=== PATIENT | male | born 1940 | race Caucasian/White ===

== ENCOUNTER → 2018-08-07 | Outpatient (CLI) | payer MEDICARE, OTHER ==
[~2018-08-07] MED LIST: ALLO300 PO; ATEN25; Aspirin EC325 MG PO; Benicar40 MG PO; CARV6.25 PO; CYAN1000 PO; DOCU100 PO; DOXA2 PO; DOXA4; DOXA4 PO; DOXE25; EPRO400; FAMO20 PO; FISH1000 PO; GEMF600; GEMF600 PO; HYDMOR2 PO; IRON PO; Iron Supplemen325 MG PO; METF500; METF500 PO; METPRE4DP PO; Norco 5-325 Ta1 EACH PO; OLME20 PO; PRED10 PO; SIMV10 PO; SPIR50 PO; [UNRECOGNIZED DRUG - OTHER] PO
== END | disposition home or self-care (01) ==
LOC: LAB SHORT 12:22 → LAB EV 12:22
DX: N39.0 Urinary tract infection, site not specified (principal)
CPT/HCPCS: 87077; 87086; 87186

== ENCOUNTER 2019-01-06 11:54 | Inpatient (IN) | payer MEDICARE, OTHER ==
[~2019-01-06] VITALS: Ht 170.2 cm; Wt 78.3 kg
[2019-01-06 12:28] LABS: BASOPHILS ABSOLUTE AUTO 0.07 K/mm3 (0.00-0.23); BASOPHILS PERCENT AUTO 1 % (0-2); EOSINOPHILS ABSOLUTE AUTO 0.04 K/mm3 (0.00-0.68); EOSINOPHILS PERCENT AUTO 0 % (0-6); Hematocrit 39.7 % (37.0-53.0); Hemoglobin 12.9 g/dL (13.5-17.5); IMMATURE GRAN ABSOLUTE AUTO 0.14 K/mm3 (0.00-0.10); IMMATURE GRAN PERCENT AUTO 1 % (0-1); LYMPHOCYTES ABSOLUTE AUTO 0.58 K/mm3 (0.84-5.20); LYMPHOCYTES PERCENT AUTO 4 % (21-46); MONOCYTES ABSOLUTE AUTO 0.91 K/mm3 (0.16-1.47); MONOCYTES PERCENT AUTO 6 % (4-13); Mean Corpuscular HGB 30.4 pg (26.0-34.0); Mean Corpuscular HGB Conc 32.5 g/dL (31.5-36.5); Mean Corpuscular Volume 93 fL (80-100); Mean Platelet Volume 12.3 fL (9.1-12.4); NEUTROPHILS ABSOLUTE AUTO 13.02 K/mm3 (1.96-9.15); NEUTROPHILS PERCENT AUTO 88 % (41-73); Platelet Count 166 K/mm3 (150-400); RDW Coefficient Variation 13.1 % (11.7-14.2); RDW Standard Deviation 44.6 fL (35.1-46.3); Red Blood Cell Count 4.25 M/mm3 (4.30-5.90); White Blood Cell Count 14.76 K/mm3 (4.00-11.30)
[2019-01-06 12:46] LABS: Albumin, Blood 2.9 g/dL (3.4-5.0); Albumin/Globulin Ratio 0.7 (0.8-1.8); Bilirubin, Total 0.3 mg/dL (0.1-1.0); Bun/Creatinine Ratio 30.8 (12.0-20.0); Calcium, Blood 8.5 mg/dL (8.5-10.1); Creatinine, Blood 1.43 mg/dL (0.60-1.20); Globulin, Blood 4.2 g/dL (2.2-4.0); Potassium, Blood 3.8 mmol/L (3.5-5.5); Total Protein, Blood 7.1 g/dL (6.4-8.2)
[2019-01-06] MEDS ORDERED: ROSU5 PO (13:14)
--- NOTE | 2019-01-06 17:46 | NUR ---
SHIFT SUMMARY PATIENT ADMITTED TO THE UNIT IN THE 1500 HOUR. HIS RIGHT UPPER EXTREMITY HAS A PRETTY SIGNIFICANT CELLULITIS WITH ONE OPEN BLISTER AND TWO CLOSED BLISTERS. HE STATES THAT IT HAPPENED OVER A 2 DAY PERIOD, NO TRAUMA TO THE AREA, NO BITE, NO BUMPS NOTED. PATIENT IS A&O X4. INDEPENDENT TO SBA AND CALLS APPROPRIATELY. HE IS RUNNING ONE BAG OF LACTATED RINGERS AND HIS ORTHO CONSULT HAS BEEN CALLED TO DR. VU. WILL ASSESS FOR ANY CHANGES, AT THIS TIME PATIENT IS PLEASANT AND DENIES HUNGER.
[2019-01-07 05:00] LABS: BASOPHILS ABSOLUTE AUTO 0.04 K/mm3 (0.00-0.23); BASOPHILS PERCENT AUTO 0 % (0-2); EOSINOPHILS ABSOLUTE AUTO 0.12 K/mm3 (0.00-0.68); EOSINOPHILS PERCENT AUTO 1 % (0-6); Hematocrit 35.9 % (37.0-53.0); Hemoglobin 11.6 g/dL (13.5-17.5); IMMATURE GRAN ABSOLUTE AUTO 0.09 K/mm3 (0.00-0.10); IMMATURE GRAN PERCENT AUTO 1 % (0-1); LYMPHOCYTES ABSOLUTE AUTO 0.88 K/mm3 (0.84-5.20); LYMPHOCYTES PERCENT AUTO 8 % (21-46); MONOCYTES ABSOLUTE AUTO 0.74 K/mm3 (0.16-1.47); MONOCYTES PERCENT AUTO 7 % (4-13); Mean Corpuscular HGB 30.9 pg (26.0-34.0); Mean Corpuscular HGB Conc 32.3 g/dL (31.5-36.5); Mean Platelet Volume 12.1 fL (9.1-12.4); NEUTROPHILS ABSOLUTE AUTO 8.68 K/mm3 (1.96-9.15); NEUTROPHILS PERCENT AUTO 82 % (41-73); Platelet Count 161 K/mm3 (150-400); RDW Coefficient Variation 13.1 % (11.7-14.2); RDW Standard Deviation 45.9 fL (35.1-46.3); Red Blood Cell Count 3.76 M/mm3 (4.30-5.90); White Blood Cell Count 10.55 K/mm3 (4.00-11.30)
[2019-01-07 05:01] LABS: Mean Corpuscular Volume 96 fL (80-100)
[2019-01-07 05:44] LABS: Anion Gap 11 mmol/L (6-16); Blood Urea Nitrogen 35 mg/dL (8-24); Bun/Creatinine Ratio 29.9 (12.0-20.0); CO2, Blood 22 mmol/L (21-32); Calcium, Blood 8.5 mg/dL (8.5-10.1); Chloride, Blood 104 mmol/L (98-108); Creatinine, Blood 1.17 mg/dL (0.60-1.20); Glomerular Filtration Rate >60 (60-); Glucose, Blood 81 mg/dL (70-99); Potassium, Blood 3.3 mmol/L (3.5-5.5); Sodium, Blood 137 mmol/L (136-145)
--- NOTE | 2019-01-07 06:20 | NUR ---
01/07/19 0600 SECOND BLOOD CULTURE THE SAME FIRST AND MD/PHARMACY AWARE. SLEPT WELL AND VITALS STABLE.
--- NOTE | 2019-01-07 08:48 | NUR ---
PATIENT IS IRRITABLE THIS MORNING. HE STATES THAT EVERY FIVE MINUTES THERE IS SOMEONE IN HIS ROOM, I EXPLAINED TO HIM IN THE HOSPITAL WE CHECK ON OUR PATIENTS REGULARLY AND THERE ARE A LOT OF PEOPLE WORKING ON HIS CASE. HE SAID HE DOES NOT FEEL SICK AND THAT IT IS JUST HIS HAND, THAT IS WHY HE CAME IN. I EXPLAINED TO HIM ABOUT HIS MEDS. HE AGREED TO TAKE THE PROBIOTIC AND THE ANTIBIOTIC. HE REFUSED HIS POTASSIUM AND ALSO REFUSED THE LOSARTAN. HE STATES THAT HE DOES NOT TAKE THAT ANYMORE. I EXPLAIEND TO HIM ABOUT HIS POTASSIUM BEING LOW, HE DID NOT WANT TO TAKE THE POTASSIUM PILL.
[2019-01-07 13:30] LABS: Vancomycin, Trough 4.8 ug/mL (5.0-10.0)
--- NOTE | 2019-01-07 18:20 | NUR ---
SHIFT SUMMARY PATIENT WAS PLEASANT TODAY. WRIST IS WRAPPED AND CULTURES HAVE BEEN SENT OFF OF HIS WOUND. WILL CONTINUE TO MONITOR FOR CHANGES. UNTIL HE IS AWAKE HE CAN BE A LITTLE BIT CRANKY. HE DOES REQUEST TO GET SOME SLEEP TONIGHT, HE STATED THAT SOMEONE WAS ALWAYS IN HIS ROOM. UNKNOWN IF HE IS JUST MILDLY ANXIOUS AT THIS TIME. HAS TAKEN HIS MEDICATIONS AND WILL DOSUMENT ANY CHANGES.
--- NOTE | 2019-01-08 01:08 | NUR ---
01/07/192049 PT C/O ITCHING IN BOTH ARMS "SINCE ABOUT 3 PM". NO RASH SEEN. 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 RN PAGED DIRECTOR TELEVISION HOSPITALIST AND BENADRYL 25 MG GIVEN PO. PT REQUESTED TO SEE UNDER CARLA WRAP. RN UNWRAPPED ACR AND GAUZE DRESSING INTACT WITH SEROUS DRAINAGE. RN RE-WRAPPED CARLA AND PT WATCHING TV.
--- NOTE | 2019-01-08 05:11 | NUR ---
01/08/19 0500 SLEEPING WELL. VITALS STABLE. HAS BEEN MORE RESTLESS WITH "ITCHING" ISSUES TO HANDS/ARMS. DRESSING INTACT TO RT HAND AND ARM.
[2019-01-08 07:59] LABS: Vancomycin, Trough 12.6 ug/mL (5.0-10.0)
--- NOTE | 2019-01-08 16:58 | NUR ---
THIS PATIENT IS ALERT AND ORIENTED X2 AND COOPERATIVE WITH CARE. HE FORGETS HIS OWN LIMITATIONS AND NEEDS FREQUENT REMINDING. HE HAS A DRESSING ON HIS RIGHT WRIST COVERING THE CELLULITIS. A NEW IV WAS PLACED IN HIS LEFT UPPER ARM, A 20 GAUGE. HIS POTATTIUM WAS 3.[address] SMITH ORDERED 40 MEQ OF POTASSIUM CHLORIDE PO. THE PT CAN AMBULATE WITH A FWW, HE CAN BECOME UNSTEADY SO ASSISTANCE IS NEEDED. HE USES THE URINAL IN AT THE BEDSIDE OR CAN WALK TO THE BATHROOM. WILL CONTINUE TO MONITOR.
--- NOTE | 2019-01-09 06:07 | NUR ---
01/09/19 0545 PT SLEPT BETTER TONIGHT. WOKE UP ONCE AROUND MIDNIGHT AND STATES HE WAS UNSURE WHERE HE WAS. RN WAS THERE TO GIVE IV ANTIBIOTIC AND RE-ORIENTED HIM TO SURROUNDINGS. VITALS REMAIN STABLE. RT HAND/ARM DRESSING INTACT. NO C/O ITCHING THIS SHIFT.
[2019-01-09 09:45] LABS: BASOPHILS ABSOLUTE AUTO 0.04 K/mm3 (0.00-0.23); BASOPHILS PERCENT AUTO 1 % (0-2); EOSINOPHILS ABSOLUTE AUTO 0.07 K/mm3 (0.00-0.68); EOSINOPHILS PERCENT AUTO 1 % (0-6); Hematocrit 35.4 % (37.0-53.0); Hemoglobin 11.3 g/dL (13.5-17.5); IMMATURE GRAN PERCENT AUTO 1 % (0-1); LYMPHOCYTES ABSOLUTE AUTO 0.74 K/mm3 (0.84-5.20); LYMPHOCYTES PERCENT AUTO 10 % (21-46); MONOCYTES ABSOLUTE AUTO 0.86 K/mm3 (0.16-1.47); MONOCYTES PERCENT AUTO 11 % (4-13); Mean Corpuscular HGB 30.3 pg (26.0-34.0); Mean Corpuscular HGB Conc 31.9 g/dL (31.5-36.5); Mean Corpuscular Volume 95 fL (80-100); Mean Platelet Volume 11.2 fL (9.1-12.4); NEUTROPHILS ABSOLUTE AUTO 5.99 K/mm3 (1.96-9.15); NEUTROPHILS PERCENT AUTO 77 % (41-73); Platelet Count 244 K/mm3 (150-400); RDW Coefficient Variation 13.2 % (11.7-14.2); RDW Standard Deviation 46.2 fL (35.1-46.3); Red Blood Cell Count 3.73 M/mm3 (4.30-5.90)
[2019-01-09 09:57] LABS: Anion Gap 9 mmol/L (6-16); Blood Urea Nitrogen 16 mg/dL (8-24); CO2, Blood 27 mmol/L (21-32); Calcium, Blood 8.7 mg/dL (8.5-10.1); Chloride, Blood 105 mmol/L (98-108); Creatinine, Blood 0.89 mg/dL (0.60-1.20); Glomerular Filtration Rate >60 (60-); Glucose, Blood 110 mg/dL (70-99); Potassium, Blood 3.7 mmol/L (3.5-5.5); Sodium, Blood 141 mmol/L (136-145)
--- NOTE | 2019-01-09 17:39 | NUR ---
THIS PT IS ALERT AND ORIENTED WITH MILD CONFUSION. DR. GOLD CHECKED THE WOUND ON HIS RIGHT HAND AND ORDERED NEW DRESSING CHANGES OF SILVADENE, OIL EMULSION, GAUZE AND CARLA WRAP. THE WOUND ITSELF HAD A STRONG ODOR, IT BLED AND HAD YELLOW AND SEROSANGUINOUS DRAINAGE. THE WOUND IS PAINFUL TO THE TOUCH, WHICH WAS TREATED WIHT TYLENOL. HE HAS A 20 GAUGE IN HIS LEFT UPPER ARM, SALINE LOCKED. THE PT SLEPT IN BED MOST OF THE DAY. HIS APPETTITE HASNT BEEN THE BEST, HE TRIES TO REFUSE MEALS BUT IS ENCOURAGED TO TRY TO EAT SOMETHING. HE IS UP AT THE BEDSIDE WITH THE URINAL. NO ACUTE CHANGES AND WILL CONTINUE TO MONITOR.
--- NOTE | 2019-01-10 05:02 | NUR ---
SHIFT SUMMARY PT SLEPT WELL T/O NIGHT. AOX3, FORGETFUL @TIMES YET ANSWERS YES/NO QUESTIONS APPROPRIATELY & FOLLOWS DIRECTIONS. DENIES SOB OR N/V. VSS. REPORTS 7/10 PAIN IN R HAND THIS AM, WAS MEDICATED W/TYLENOL 1X PER ORDERS, REPORTS TYLENOL HELPS W/ THROBBING PAIN & PT REMOVED CARLA WRAP OFF R HAND & WOULD NOT LET ME REWRAP. DRESSING WAS CHANGED 01/09/19 PER DAY SHIFT RN, THIS AM DRESSING HAD SCANT AMOUNT SEROSANGUINEOUS DRAINAGE BUT WAS INTACT. PT REPORTED ITCHING THIS AM & WAS MEDICATED 1X W/BENYDRL PER ORDERS. PT INDEPENDENT IN ROOM & IS CONTINENT. CALL LIGHT IS IN REACH & I WCTM PT UNTIL DAY SHIFT RN ASSUMES CARE.
--- NOTE | 2019-01-10 16:23 | NUR ---
PT WITH FEVER 101.7 GIVEN TYLENOL 500MG PO, AWARE.
--- NOTE | 2019-01-10 18:50 | NUR ---
SHIFT SUMMARY REDRESSED WOUND TO RIGHT HAND PURULENT YELLOW EXUDATE NOTED ON GAUZE. PAIN, REDDNESS AND WARMTH TO SITE. DECREASED APPETITE BUT DRINKING ENSURES. FEVER THIS AFTERNOON. OOB TO BATHROOM STANDBY ASSIST. CONTINENT. SPOUSE AND DAUGHTER TO VISIT. C/O PAIN TO LEFT ARM RELIEVED BY ORDERED PAIN MEDICATIONS.
--- NOTE | 2019-01-11 05:26 | NUR ---
SHIFT SUMMARY PT A/O SLOW TO RESPOND. SBA TO BA USES URINAL AT BEDSIDE. C/O PAIN IN R HAND AND MEDICATED PER EMAR X1. HE WAS ABLE TO SLEEP ON AND OFF T/O NOC. CALL LIGHT IN REACH
[2019-01-11 08:28] LABS: BASOPHILS ABSOLUTE AUTO 0.03 K/mm3 (0.00-0.23); BASOPHILS PERCENT AUTO 0 % (0-2); EOSINOPHILS ABSOLUTE AUTO 0.08 K/mm3 (0.00-0.68); EOSINOPHILS PERCENT AUTO 1 % (0-6); Hemoglobin 11.2 g/dL (13.5-17.5); IMMATURE GRAN ABSOLUTE AUTO 0.09 K/mm3 (0.00-0.10); IMMATURE GRAN PERCENT AUTO 1 % (0-1); LYMPHOCYTES ABSOLUTE AUTO 0.76 K/mm3 (0.84-5.20); LYMPHOCYTES PERCENT AUTO 11 % (21-46); MONOCYTES ABSOLUTE AUTO 0.85 K/mm3 (0.16-1.47); MONOCYTES PERCENT AUTO 12 % (4-13); Mean Corpuscular HGB 30.4 pg (26.0-34.0); Mean Corpuscular Volume 95 fL (80-100); Mean Platelet Volume 11.4 fL (9.1-12.4); NEUTROPHILS ABSOLUTE AUTO 5.27 K/mm3 (1.96-9.15); NEUTROPHILS PERCENT AUTO 75 % (41-73); Platelet Count 284 K/mm3 (150-400); RDW Standard Deviation 45.3 fL (35.1-46.3); Red Blood Cell Count 3.69 M/mm3 (4.30-5.90); White Blood Cell Count 7.08 K/mm3 (4.00-11.30)
--- NOTE | 2019-01-11 09:04 | NUR ---
CHANGED PT'S BANADAGE ON R HAND. WOUND HAS LOOSE SKIN AND WET DISCHARGE. REBANDAGED AND WRAPPED. TREATED PAIN PER EMAR. PT TOLERATED CHANGE WELL.
--- NOTE | 2019-01-11 17:20 | NUR ---
PT AOX4 AND COOPERATIVE OF CARE. PT USING URINAL AT BEDSIDE. PT TREATED FOR R HAND PAIN PER EMAR. CALLS APPROPRIATELY. WILL CONTINUE TO MONITOR.
--- NOTE | 2019-01-12 05:16 | NUR ---
SHIFT SUMMARY C/O PAIN IN R HAND AND MEDICATED X2. HE WAS ABLE TO SLEEP T/O NIGHT USING URINAL AT BEDSIDE. CALL LIGHT IN REACH
--- NOTE | 2019-01-12 17:47 | NUR ---
PATIENT DECLINED DINNER TRAY WHEN I BROUGHT IT IN. I OFFERED OTHER ALTERNATIVED AND PATIENT DECLINED. TRAY WAS REMOVED AND RN NOTIFIED.
[2019-01-13 04:45] LABS: BASOPHILS ABSOLUTE AUTO 0.04 K/mm3 (0.00-0.23); BASOPHILS PERCENT AUTO 1 % (0-2); EOSINOPHILS ABSOLUTE AUTO 0.17 K/mm3 (0.00-0.68); EOSINOPHILS PERCENT AUTO 2 % (0-6); Hematocrit 34.6 % (37.0-53.0); Hemoglobin 10.9 g/dL (13.5-17.5); IMMATURE GRAN ABSOLUTE AUTO 0.05 K/mm3 (0.00-0.10); IMMATURE GRAN PERCENT AUTO 1 % (0-1); LYMPHOCYTES ABSOLUTE AUTO 0.84 K/mm3 (0.84-5.20); LYMPHOCYTES PERCENT AUTO 12 % (21-46); MONOCYTES ABSOLUTE AUTO 0.63 K/mm3 (0.16-1.47); MONOCYTES PERCENT AUTO 9 % (4-13); Mean Corpuscular HGB 30.4 pg (26.0-34.0); Mean Corpuscular HGB Conc 31.5 g/dL (31.5-36.5); Mean Corpuscular Volume 97 fL (80-100); Mean Platelet Volume 11.3 fL (9.1-12.4); NEUTROPHILS ABSOLUTE AUTO 5.33 K/mm3 (1.96-9.15); NEUTROPHILS PERCENT AUTO 76 % (41-73); Platelet Count 317 K/mm3 (150-400); RDW Coefficient Variation 13.1 % (11.7-14.2); RDW Standard Deviation 46.5 fL (35.1-46.3); Red Blood Cell Count 3.58 M/mm3 (4.30-5.90); White Blood Cell Count 7.06 K/mm3 (4.00-11.30)
[2019-01-13 05:01] LABS: Anion Gap 8 mmol/L (6-16); Blood Urea Nitrogen 18 mg/dL (8-24); Bun/Creatinine Ratio 21.6 (12.0-20.0); CO2, Blood 29 mmol/L (21-32); Calcium, Blood 8.7 mg/dL (8.5-10.1); Chloride, Blood 97 mmol/L (98-108); Creatinine, Blood 0.83 mg/dL (0.60-1.20); Glomerular Filtration Rate >60 (60-); Glucose, Blood 85 mg/dL (70-99); Potassium, Blood 3.4 mmol/L (3.5-5.5); Sodium, Blood 134 mmol/L (136-145)
--- NOTE | 2019-01-13 06:33 | NUR ---
SHIFT SUMMARY PT PLEASANT AND COOPERATIVE. STANDS AT BEDSIDE TO USE THE URINAL BUT NEEDS ASSISTANCE AT TIMES. DENIED PAIN THIS EVENING. DID COMPLAIN OF ITCHING ON ARMS AND LEGS. BENADRYL CREAM APPLIED PER ORDERS. DRESSING TO R HAND CELLULITIS CLEAN, DRY, AND INTACT. PT SLEPT WELL THROUGH MOST OF THE NIGHT. NO ACUTE CHANGES. VSS.
[2019-01-13] MEDS ORDERED: ACET500 PO (10:49)
[2019-01-13] MEDS ORDERED: DIPH50 PO (10:50)
[2019-01-13] MEDS ORDERED: AMOCLA500 PO (10:50)
[2019-01-13] MEDS ORDERED: [UNRECOGNIZED DRUG - OTHER] TOP (10:52)
[2019-01-13] MEDS ORDERED: ONDA4ODT MM (10:53)
[2019-01-13] MEDS ORDERED: Senna Plus Tab1 EACH PO (10:53)
[2019-01-13] MEDS ORDERED: Acidophilus La100 GM PO (10:53)
[2019-01-13] MEDS ORDERED: TRAM50 PO (10:54)
[2019-01-13] MEDS ORDERED: ASCO500 PO (10:54)
[2019-01-13] MEDS ORDERED: Silvadene20 GM TOP (10:54)
[2019-01-13] MEDS ORDERED: GAVILAX17 GM PO (10:54)
[2019-01-13] MEDS ORDERED: Ferrous Sulfat325 M2 PO (10:55)
[2019-01-13] MEDS ORDERED: CARV6.25 PO (10:55)
[2019-01-13] MEDS ORDERED: Micro-K10 MEQ PO (10:55)
--- NOTE | 2019-01-13 14:19 | NUR ---
SHIFT SUMMARY/DC PT HAS HAD NO ACUTE CHANGES THIS SHIFT, NO COMPLAINTS OF ANY KIND, REVIEWED DC INSTRUCTIONS W/PT, SPOUSE & DAUGHTER, ALL VERBALIZED UNDERSTANDING. DC INSTRUCTIONS STATED HOME W/HH & WOUND CLINIC FOLLOW UP. REDRESSED WOUND W/SPOUSE AND DAUGHTER, GAVE EXTRA SUPPLIES TO BE AVAILABLE IF NEEDED BEFORE FOLLOW UP. FACE SHEET FAXED TO WOUND CLINIC. PT TRANSPORTED VIA W/C TO DC IN PRIVATE VEHICLE @ 1400.
== END 2019-01-13 13:59 | disposition home health service (06) | DRG 872 ==
LOC: ER 11:54 → MEDS 13:52 → ENPENDDIS 01-13 10:47 → EDPENDDIS 01-13 10:47 → MEDS 01-13 13:59
PROVIDERS: Family Medicine; Internal Medicine; Physician Assistant; ADMIT Internal Medicine
DX: A41.9 Sepsis, unspecified organism (principal); L03.113 Cellulitis of right upper limb; N17.9 Acute kidney failure, unspecified; E78.5 Hyperlipidemia, unspecified; E87.6 Hypokalemia; N40.0 Benign prostatic hyperplasia without lower urinary tract symptoms; F06.8 Other specified mental disorders due to known physiological condition; E88.81 Metabolic syndrome and other insulin resistance; Z87.891 Personal history of nicotine dependence; B95.61 Methicillin susceptible Staphylococcus aureus infection as the cause of diseases classified elsewhere; I12.9 Hypertensive chronic kidney disease with stage 1 through stage 4 chronic kidney disease, or unspecified chronic kidney disease; E11.22 Type 2 diabetes mellitus with diabetic chronic kidney disease; N18.9 Chronic kidney disease, unspecified
CPT/HCPCS: 36415; 73130; 80048; 80053; 80202; 83605; 84132; 85025; 87040; 87070; 87075; 87147; 87205; 93306; 96365; 96367; 97110; 97116; 97162; 97530; 99285-25; J0690; J1650; J2405; J3370; J7050; J7120; Q0163

== ENCOUNTER 2023-04-07 04:08 | Emergency (ER) | payer MEDICARE, OTHER ==
[~2023-04-07] VITALS: Ht 170.2 cm; Wt 81.7 kg
[~2023-04-07 04:08] MED LIST changes: +ACET500 PO; +AMOCLA500 PO; +ASCO500 PO; +Acidophilus La100 GM PO; +DIPH50 PO; +Ferrous Sulfat325 M2 PO; +GAVILAX17 GM PO; +Micro-K10 MEQ PO; +ONDA4ODT MM; +ROSU5 PO; +Senna Plus Tab1 EACH PO; +Silvadene20 GM TOP; +TRAM50 PO; +[UNRECOGNIZED DRUG - OTHER] TOP
[2023-04-07 04:57] LABS: BASOPHILS ABSOLUTE AUTO 0.11 K/mm3 (0.00-0.23); BASOPHILS PERCENT AUTO 1 % (0-2); EOSINOPHILS ABSOLUTE AUTO 0.58 K/mm3 (0.00-0.68); EOSINOPHILS PERCENT AUTO 7 % (0-6); Hematocrit 47.8 % (37.0-53.0); Hemoglobin 15.9 g/dL (13.5-17.5); IMMATURE GRAN ABSOLUTE AUTO 0.05 K/mm3 (0.00-0.10); IMMATURE GRAN PERCENT AUTO 1 % (0-1); LYMPHOCYTES ABSOLUTE AUTO 1.28 K/mm3 (0.84-5.20); LYMPHOCYTES PERCENT AUTO 15 % (21-46); MONOCYTES ABSOLUTE AUTO 1.07 K/mm3 (0.16-1.47); MONOCYTES PERCENT AUTO 12 % (4-13); Mean Corpuscular HGB 30.6 pg (26.0-34.0); Mean Corpuscular HGB Conc 33.3 g/dL (31.5-36.5); Mean Corpuscular Volume 92 fL (80-100); Mean Platelet Volume 11.8 fL (9.1-12.4); NEUTROPHILS PERCENT AUTO 65 % (41-73); Platelet Count 191 K/mm3 (150-400); RDW Coefficient Variation 14.6 % (11.7-14.2); RDW Standard Deviation 49.5 fL (35.1-46.3); White Blood Cell Count 8.79 K/mm3 (4.00-11.30)
[2023-04-07 05:17] LABS: Albumin/Globulin Ratio 0.8 (0.8-1.8); Bilirubin, Total 1.1 mg/dL (0.1-1.0); Bun/Creatinine Ratio 12.8 (12.0-20.0); C-REACTIVE PROTEIN, EXT RANGE 8.18 mg/dL (0.000-0.300); Calcium, Blood 8.6 mg/dL (8.5-10.1); Creatinine, Blood 1.09 mg/dL (0.60-1.20)
[2023-04-07 05:45] LABS: Body Fluid Crystals POS (NEGATIVE)
[2023-04-07 07:22] LABS: Appearance, Synovial Fluid Cloudy (Clear); Color, Synovial Fluid Yellow (None-P Yel); WBC Count, Synovial Fluid 38225 /mm3 (0-180)
[2023-04-07 07:46] LABS: RBC Count, Synovial Fluid 625 /mm3 (0-0)
[2023-04-07] MEDS ORDERED: NAPR500EC PO (07:56)
[2023-04-07 08:23] LABS: Monocytes/Macrophages, Synovia 11 % (0-65); Neutrophils, Synovial Fluid 89 % (0-24)
[2023-04-07 08:27] VITALS: BP 163/116
== END 2023-04-07 08:24 | disposition home or self-care (01) ==
LOC: ER 04:08
PROVIDERS: Emergency Medicine
DX: M10.9 Gout, unspecified (principal); I10 Essential (primary) hypertension; E11.9 Type 2 diabetes mellitus without complications
CPT/HCPCS: 73560-LT; 80053; 85025; 85651; 86140; 89051; 89060; J1885; J2405; J3010

== ENCOUNTER 2023-05-31 11:06 | Emergency (ER) | payer MEDICARE, OTHER ==
[~2023-05-31] VITALS: Ht 175.3 cm; Wt 72.6 kg
[~2023-05-31 11:06] MED LIST changes: +NAPR500EC PO
[2023-05-31 11:11] VITALS: BP 160/64
== END 2023-05-31 13:50 | disposition home or self-care (01) ==
LOC: ER 11:06
DX: M11.841 Other specified crystal arthropathies, right hand (principal); M10.9 Gout, unspecified; I10 Essential (primary) hypertension; E11.9 Type 2 diabetes mellitus without complications; Z87.891 Personal history of nicotine dependence
CPT/HCPCS: 73110; 93971; 96374; 99284-25; J1885

== ENCOUNTER 2023-07-30 23:00 | Emergency (ER) | payer MEDICARE, OTHER ==
[~2023-07-30] VITALS: Ht 175.3 cm; Wt 72.6 kg
[2023-07-30 23:05] VITALS: BP 174/99
[2023-07-30 23:38] LABS: BASOPHILS ABSOLUTE AUTO 0.07 K/mm3 (0.00-0.23); BASOPHILS PERCENT AUTO 1 % (0-2); EOSINOPHILS ABSOLUTE AUTO 0.79 K/mm3 (0.00-0.68); EOSINOPHILS PERCENT AUTO 10 % (0-6); Hematocrit 46.5 % (37.0-53.0); Hemoglobin 15.6 g/dL (13.5-17.5); IMMATURE GRAN ABSOLUTE AUTO 0.03 K/mm3 (0.00-0.10); IMMATURE GRAN PERCENT AUTO 0 % (0-1); LYMPHOCYTES ABSOLUTE AUTO 1.15 K/mm3 (0.84-5.20); LYMPHOCYTES PERCENT AUTO 14 % (21-46); MONOCYTES ABSOLUTE AUTO 0.81 K/mm3 (0.16-1.47); MONOCYTES PERCENT AUTO 10 % (4-13); Mean Corpuscular HGB 30.6 pg (26.0-34.0); Mean Corpuscular HGB Conc 33.5 g/dL (31.5-36.5); Mean Corpuscular Volume 91 fL (80-100); Mean Platelet Volume 11.6 fL (9.1-12.4); NEUTROPHILS ABSOLUTE AUTO 5.33 K/mm3 (1.96-9.15); NEUTROPHILS PERCENT AUTO 65 % (41-73); Platelet Count 187 K/mm3 (150-400); RDW Coefficient Variation 14.3 % (11.7-14.2); RDW Standard Deviation 48.1 fL (35.1-46.3); Red Blood Cell Count 5.09 M/mm3 (4.30-5.90); White Blood Cell Count 8.18 K/mm3 (4.00-11.30)
[2023-07-30 23:57] LABS: Albumin, Blood 2.8 g/dL (3.4-5.0); Albumin/Globulin Ratio 0.8 (0.8-1.8); Bilirubin, Total 0.6 mg/dL (0.1-1.0); Bun/Creatinine Ratio 10.4 (12.0-20.0); Calcium, Blood 8.8 mg/dL (8.5-10.1); Creatinine, Blood 1.15 mg/dL (0.60-1.20); Globulin, Blood 3.6 g/dL (2.2-4.0); Potassium, Blood 3.7 mmol/L (3.5-5.5); Total Protein, Blood 6.4 g/dL (6.4-8.2)
[2023-07-31 00:37] LABS: Source, Urine Voided
[2023-07-31 00:48] LABS: Bilirubin, Urine Neg (Neg); Blood, Urine 2+ (Neg); Glucose Qualitative, Urine Neg (Neg); Ketones, Urine Neg (Neg); Leukocyte Esterase, Urine 3+ (Neg); Nitrite, Urine Neg (Neg); Protein, Urine 1+ (Neg); Specific Gravity, Urine 1.015 (1.003-1.022); Urobilinogen, Urine NORM (Normal); pH, Urine 6.5 (5.0-8.0)
[2023-07-31 00:59] LABS: Appearance, Urine Hazy (Clear); Color, Urine Yellow (P-Yellow); Red Blood Cells, Urine 0-2 /hpf (0-2); White Blood Cells, Urine TNTC /hpf (0-5)
[2023-07-31 01:00] LABS: Bacteria Many /hpf; Squamous Epithelial Cells Not Seen /hpf (Few)
[2023-07-31] MEDS ORDERED: CEPH500 PO (01:06)
[2023-08-04] MEDS ORDERED: ATOR20 PO (12:10)
[2023-08-04] MEDS ORDERED: ASPI81CH PO (12:10)
[2023-08-04] MEDS ORDERED: ELIQUIS5 M2 PO (12:10)
[2023-08-04] MEDS ORDERED: TRULICITY0.75 MG/01 SC (12:11)
[2023-08-04] MEDS ORDERED: B-12500 MC2 PO (12:12)
[2023-08-04] MEDS ORDERED: MULVITA PO (12:13)
[2023-08-04] MEDS ORDERED: K-Phos Origina500 MG PO (12:13)
[2023-08-04] MEDS ORDERED: B-1100 M1 PO (12:14)
== END 2023-07-31 03:12 | disposition home or self-care (01) ==
LOC: ER 23:00
PROVIDERS: Emergency Medicine
DX: N39.0 Urinary tract infection, site not specified (principal); I10 Essential (primary) hypertension; M10.9 Gout, unspecified; E11.9 Type 2 diabetes mellitus without complications; E78.5 Hyperlipidemia, unspecified; N40.0 Benign prostatic hyperplasia without lower urinary tract symptoms; Z79.899 Other long term (current) drug therapy
CPT/HCPCS: 80053; 81001; 84484; 85025; 93005; 93010; 96365; 99285-25; J0696

== ENCOUNTER 2023-09-11 08:50 | Emergency (ER) | payer MEDICARE, OTHER ==
[~2023-09-11] VITALS: Ht 177.8 cm; Wt 77.1 kg
[~2023-09-11 08:50] MED LIST changes: +ASPI81CH PO; +ATOR20 PO; +B-1100 M1 PO; +B-12500 MC2 PO; +CEPH500 PO; +ELIQUIS5 M2 PO; +K-Phos Origina500 MG PO; +MULVITA PO; +TRULICITY0.75 MG/01 SC
--- NOTE | 2023-09-11 09:57 | NUR ---
"Spiritual Care Callback | EOL - [facility] Pt. is in ED-5. Family is gathered in ED consult room. Spouse is present, and family verbalize that the spouse has dementia. After introductions I facilitate a life review, and pray with the family. Joined family and spouse as they visited the Pt. in ED-5. Spouse was overwhelmed by emotion, so support is given and a chair is provided by the ED staff. Pts. ERIC is a daughter (Anisa Dickson) and she will be making decisions on behalf of the family. The family has chosen [facility] as their home. No other family are expected. Marty will let the ED staff know when they are leaving. Family verbalize gratitude for the spiritual care visit."
== END 2023-09-11 11:24 ==
LOC: ER 08:50
DX: I46.9 Cardiac arrest, cause unspecified (principal); I10 Essential (primary) hypertension; E11.9 Type 2 diabetes mellitus without complications; E78.5 Hyperlipidemia, unspecified; Z66 Do not resuscitate; Z79.899 Other long term (current) drug therapy; Z79.01 Long term (current) use of anticoagulants
CPT/HCPCS: 99285-25